=== PATIENT | male | born 1960 | race American Indian/Alaskan Native ===

== ENCOUNTER 2018-07-07 12:05 | Outpatient (CLI) | payer MEDICARE ==
--- NOTE | 2018-07-07 13:09 | XRay Report ---
Right ribs 3 views: History: Possible rib fracture. Findings: There is fracture noted of the fifth, sixth, seventh and eighth rib with minimal callus formation around the site of fracture. No pneumothorax. No consolidation of the lung parenchyma. Borderline cardiomegaly. Impression: Fracture fifth, sixth, seventh and eighth rib. No pneumothorax. No consolidation or pleural effusion.
--- NOTE | 2018-07-07 13:31 | XRay Report ---
PA and lateral chest: Right chest pain. Routine views demonstrate healed rib fractures on the right from the fourth through the eighth ribs. These are mostly posterior and slightly lateral. The lungs appear clear and fully inflated. The cardiac contour is unremarkable. There is no obvious adenopathy. Impressions: No acute findings.
== END 2018-07-07 12:06 | disposition home or self-care (01) ==
LOC: SPVIMAG 12:05
DX: S22.41XA Multiple fractures of ribs, right side, initial encounter for closed fracture (principal); X58.XXXA Exposure to other specified factors, initial encounter; Y93.89 Activity, other specified; Y92.89 Other specified places as the place of occurrence of the external cause; Y99.8 Other external cause status
CPT/HCPCS: 71046